=== PATIENT | female | born 1940 | race Caucasian/White ===

== ENCOUNTER 2018-02-27 23:59 | Emergency (ER) | payer MEDICARE ==
[~2018-02-27] VITALS: Ht 170.2 cm; Wt 52.5 kg
[2018-02-28 00:01] VITALS: BP 178/115; PULSE 125; RESP 16; TEMP 98.6; O2SAT 97
[2018-02-28] MEDS ORDERED: SODIUM CHLOR 0.9% 1000 ML INJ 1,000 ML IV ONE (00:04)
--- NOTE | 2018-02-28 00:08 | PD ---
HPI Chief Complaint: Left flank pain Time Seen by Provider: 00:04 Travel History International Travel<30 days: No Contact w/Intl Traveler<30days: No Traveled to known affect area: No History of Present Illness HPI Patient comes in complaining of left flank pain ongoing since about 7 PM tonight. Radiate towards her front left lower quadrant. Patient has a history of previous kidney stones. She has a urologist and follows up with them regularly and takes medications as well for her kidney stones. As the patient states she is full of kidney stones on both kidneys. Patient has been hydrating since her pain started as she believed it was related to a kidney stone. She was trying to accelerate passing it. Patient has been trying to take tramadol for pain control but IT has not been successful. [facility] Social History Tobacco Use: No Allergies-Medications (Allergen,Severity, Reaction): Coded Allergies: No Known Allergies (Unverified , 02/28/18) Review of Systems General / Constitutional: No: Fever Eyes: No: Visual changes HENT: No: Headaches Cardiovascular: No: Chest Pain or Discomfort Respiratory: No: Shortness of Breath Gastrointestinal: No: Abdominal Pain Genitourinary: Positive: Flank Pain Musculoskeletal: No: Pain Skin: No Rash Neurologic: No: Weakness Psychiatric: No: Depression Endocrine: No: Polydipsia Hematologic/Lymphatic: No: Easy Bruising Physical Exam Narrative GENERAL: Well-nourished, well-developed patient in no apparent distress. SKIN: Warm and dry. Additionally there was no evidence of any vesicular papular rash or any type of rash over that left flank area either. HEAD: Atraumatic. Normocephalic. EYES: Pupils equal and round. No scleral icterus. No injection or drainage. ENT: No nasal bleeding or discharge. Mucous membranes pink and moist. NECK: Trachea midline. No JVD. CARDIOVASCULAR: Regular rate and rhythm. no rubs or gallops RESPIRATORY: No accessory muscle use. Clear to auscultation. Breath sounds equal bilaterally. There was no reproducible chest wall tenderness to palpation on floating ribs 7 through 12th GASTROINTESTINAL: Abdomen soft, non-tender, nondistended. No rebound or guarding MUSCULOSKELETAL: Extremities without clubbing, cyanosis, or edema. No obvious deformities. NEUROLOGICAL: Awake and alert. No obvious cranial nerve deficits. Motor grossly within normal limits. Five out of 5 muscle strength in the arms and legs. Normal speech. PSYCHIATRIC: Appropriate mood and affect; insight and judgment normal. Data Data Last Documented VS Vital Signs Date Time Temp Pulse Resp B/P (MAP) Pulse Ox O2 Delivery O2 Flow Rate FiO2 02/28/18 00:01 98.6 125 16 178/115 (136) 97 Orders Orders Complete Blood Count With Diff (02/28/18 00:04) Comprehensive Metabolic Panel (02/28/18 00:04) Urinalysis - C+S If Indicated (02/28/18:04) Ct Abd/Pel W/O Iv Contrast (02/28/18 00:04) Ecg Monitoring (02/28/18:04) Iv Access Insert/Monitor (02/28/18:) Ketorolac Inj (Toradol Inj) (02/28/18 00:15) Morphine Inj (Morphine Inj) (02/28/18 00:15) Ondansetron Inj (Zofran Inj) (02/28/18 00:15) Sodium Chlor 0.9% 1000 Ml Inj (Ns 1000 M (02/28/18 00:04) Labs Laboratory Tests Test 02/28/18 00:05 02/28/18 00:15 Urine Color STRAW Urine Turbidity CLEAR Urine pH 7.5 Urine Specific [place] 1.004 Urine Protein NEG mg/dL Urine Glucose (UA) NEG mg/dL Urine Ketones NEG mg/dL Urine Occult Blood NEG Urine Nitrite NEG Urine Bilirubin NEG Urine Urobilinogen LESS THAN 2.0 MG/DL Urine Leukocyte Esterase SMALL Urine RBC LESS THAN 1 /hpf Urine WBC 7 /hpf Urine Squamous Epithelial Cells <1 /hpf Microscopic Urinalysis Comment CULT NOT INDICATED White Blood Count 9.8 TH/MM3 Red Blood Count 4.83 MIL/MM3 Hemoglobin 14.8 GM/DL Hematocrit 44.4 % Mean Corpuscular Volume 92.0 FL Mean Corpuscular Hemoglobin 30.7 PG Mean Corpuscular Hemoglobin Concent 33.3 % Red Cell Distribution Width 14.1 % Platelet Count 373 TH/MM3 Mean Platelet Volume 7.3 FL Neutrophils (%) (Auto) 60.4 % Lymphocytes (%) (Auto) 30.0 % Monocytes (%) (Auto) 6.9 % Eosinophils (%) (Auto) 2.2 % Basophils (%) (Auto) 0.5 % Neutrophils # (Auto) 5.9 TH/MM3 Lymphocytes # (Auto) 2.9 TH/MM3 Monocytes # (Auto) 0.7 TH/MM3 Eosinophils # (Auto) 0.2 TH/MM3 Basophils # (Auto) 0.0 TH/MM3 CBC Comment DIFF FINAL Differential Comment Blood Urea Nitrogen 14 MG/DL Creatinine 0.62 MG/DL Random Glucose 98 MG/DL Total Protein 7.7 GM/DL Albumin 3.9 GM/DL Calcium Level 9.2 MG/DL Alkaline Phosphatase 77 U/L Aspartate Amino Transf (AST/SGOT) 19 U/L Alanine Aminotransferase (ALT/SGPT) 27 U/L Total Bilirubin 0.3 MG/DL Sodium Level 144 MEQ/L Potassium Level 3.6 MEQ/L Chloride Level 106 MEQ/L Carbon Dioxide Level 31.2 MEQ/L Anion Gap 7 MEQ/L Estimat Glomerular Filtration Rate 93 ML/MIN [facility] Medical Decision Making Medical Screen Exam Complete: Yes Emergency Medical Condition: Yes Medical Record Reviewed: Yes Interpretation(s) Sinus tachycardia, 123 bpm, normal intervals, no evidence of tombstone ST elevation NM pattern noted Differential Diagnosis Pyelonephritis versus nephrolithiasis versus UTI versus colitis versus diverticulitis Narrative Course CBC shows no leukocytosis, no anemia, normal platelet count, no left shift UA shows no evidence of a UTI Electrolytes are all within normal limits, normal kidney liver functions. CT abdomen pelvis performed and read by radiologist shows sigmoid diverticulosis without evidence of diverticulitis, lumbar scoliosis, a 2 mm calcification is in the lumen of the urinary bladder medial to the orifice of the left ureter which represents a recently passed stone. In addition the patient has multiple bilateral renal stones no definite hydronephrosis on either side. Diagnosis Primary Impression: Ureterolithiasis Patient Instructions: General Instructions, Kidney Stones (ED) Scripts Ondansetron Odt (Zofran Odt) 4 Mg Tab 4 MG SL Q6HR Y for Nausea/Vomiting, #12 TAB 0 Refills Prov: Jeet Solorzano MD 02/28/18 Ketorolac (Ketorolac) 10 Mg Tab 10 MG PO TID Y for Pain Management, #12 TAB 0 Refills Prov: Jeet Solorzano MD 02/28/18 Disposition: 01 DISCHARGE HOME Condition: Stable Jeet Solorzano MD Feb 28, 2018 00:08
[2018-02-28] MEDS ORDERED: MORPHINE SULFATE 4 MG/ML INJ IV PUSH ONE (00:15)
[2018-02-28] MEDS ORDERED: KETOROLAC TROMETHAMINE 30 MG/ML (IVP) VIAL IV PUSH ONE ×2 (00:15→03:15)
[2018-02-28] MEDS ORDERED: ONDANSETRON HCL 4 MG/2 ML VIAL IV PUSH ONE (00:15)
[2018-02-28 00:47] LABS: AUTOMATED NEUTROPHIL # 5.9 TH/MM3 (1.8-7.7); BASOPHIL % 0.5 % (0.0-2.0); EOSINOPHIL # 0.2 TH/MM3 (0-0.4); EOSINOPHIL % 2.2 % (0.0-4.0); HEMATOCRIT 44.4 % (35.0-46.0); HEMOGLOBIN 14.8 GM/DL (11.6-15.3); LYMPHOCYTE # 2.9 TH/MM3 (1.0-4.8); MEAN CORPUSCULAR HEMOGLOBIN 30.7 PG (27.0-34.0); MEAN CORPUSCULAR HGB CONC 33.3 % (32.0-36.0); MEAN PLATELET VOLUME 7.3 FL (7.0-11.0); MONO % 6.9 % (0.0-8.0); MONOCYTE # 0.7 TH/MM3 (0-0.9); NEUT % 60.4 % (16.0-70.0); PLATELET COUNT 373 TH/MM3 (150-450); RED BLOOD COUNT 4.83 MIL/MM3 (4.00-5.30); RED CELL DISTRIBUTION WIDTH 14.1 % (11.6-17.2); WHITE BLOOD COUNT 9.8 TH/MM3 (4.0-11.0)
[2018-02-28 00:48] LABS: BILIRUBIN, URINE NEG (NEG); BLOOD, URINE NEG (NEG); GLUCOSE,URINE NEG (NEG); KETONE, URINE NEG (NEG); NITRITE,URINE NEG (NEG); PH, URINE 7.5 (5.0-8.5); SQUAMOUS EPITHELIAL CELL URINE <1 /hpf (0-5); URINE LEUKOCYTE ESTERASE SMALL (NEG)
[2018-02-28 00:49] LABS: URINE COLOR STRAW (YELLW/STRAW)
[2018-02-28 01:02] LABS: ALBUMIN 3.9 GM/DL (3.4-5.0); ALT (GPT) 27 U/L (10-53); AST (GOT) 19 U/L (15-37); BICARBONATE 31.2 MEQ/L (21.0-32.0); BLOOD UREA NITROGEN 14 MG/DL (7-18); CALCIUM 9.2 MG/DL (8.5-10.1); CHLORIDE 106 MEQ/L (98-107); CREATININE 0.62 MG/DL (0.50-1.00); GLOMERULAR FILTRATION RATE 93 ML/MIN (>89); GLUCOSE,RANDOM 98 MG/DL (74-106); SODIUM (NA) 144 MEQ/L (136-145)
[2018-02-28 01:04] LABS: ALKALINE PHOSPHATASE 77 U/L (45-117); TOTAL BILIRUBIN ADULT 0.3 MG/DL (0.2-1.0); TOTAL PROTEIN 7.7 GM/DL (6.4-8.2)
--- NOTE | 2018-02-28 01:25 | RADRPT ---
EXAM DATE/TIME: 02/28/2018 00:22 [place] COMPARISON: No previous studies available for comparison. INDICATIONS : Left flank pain. ORAL CONTRAST: No oral contrast ingested. RADIATION DOSE: 4.58 CTDIvol (mGy) MEDICAL HISTORY : None SURGICAL HISTORY : None. ENCOUNTER: Initial ACUITY: 1 day PAIN SCALE: 10/10 LOCATION: Left flank TECHNIQUE: Volumetric scanning of the abdomen and pelvis was performed. Using automated exposure control and ad justment of the mA and/or kV according to patient size, radiation dose was kept as low as reasonably achievable to obtain optimal diagnostic quality images. DICOM format image data is available electro nically for review and comparison. FINDINGS: LOWER LUNGS: The visualized lower lungs are clear. Moderate size hiatus hernia with the fundus of the stomach int rathoracic. LIVER: Homogeneous density without lesion for noncontrast technique. There is no dilation of the biliary tr ee. Cholecystectomy. SPLEEN: Normal size without lesion. PANCREAS: Within normal limits. KIDNEYS: There are bilateral calcified renal stones. On the left side, multiple stones measure up to 9 mm in size as above no evidence of hydronephrosis. The left ureter is mildly prominent, but no calcificati ons within the lumen. On the right side, there are both collecting system and parenchymal calcificat ions present with parenchymal calcifications being in the posterior cortex along the surface of the m id pole. There are also multiple small fragmented stones no which appear to be layering in a cystic cavity. The aggregate of these stones measures 2.5 x 1.0 cm. There also appears to be a dominant ca lcification measuring 1.7 x 1.2 cm in the midpole which may represent a partially staghorn calcificat ion. The right ureter is mildly prominent, but no calcifications seen within the lumen. ADRENAL GLANDS: Within normal limits. VASCULAR: There is no aortic aneurysm. BOWEL/MESENTERY: No dilated loops of small enlarged bowel. Extensive small diverticula throughout the sigmoid colon w ithout radiographic evidence of diverticulitis. No evidence of free fluid. ABDOMINAL WALL: Within normal limits. RETROPERITONEUM: There is no lymphadenopathy. BLADDER: Smooth margins. There is a faint calcification measuring 2 mm is seen on image #[id number] located just med ial to the orifice of the left ureter which may represent a recently passed stone. REPRODUCTIVE: Within normal limits. INGUINAL: There is no lymphadenopathy or hernia. MUSCULOSKELETAL: 45 left lumbar scoliosis with associated degenerative changes. CONCLUSION: 1. Multiple bilateral renal stones including small aggregates of fragmented stones and dominant large r stones. No definite hydronephrosis on either side, but both ureters are mildly prominent. No calc ifications seen in either ureter. 2. There is a 2 mm calcification in the lumen of the urinary bladder medial to the orifice of the lef t ureter which may represent a recently passed stone. 3. The fundus of the stomach is intrathoracic in location. 4. Severe left lumbar scoliosis. 5. Sigmoid diverticulosis without radiographic evidence of diverticulitis. Addy Torres MD on February 28, 2018 at 1:15 Board Certified Radiologist. This report was verified electronically.
[2018-02-28 01:30] VITALS: BP 139/91; PULSE 82; RESP 20; O2SAT 97
[2018-02-28] MEDS ORDERED: ZOFR4TAB3 SL (02:44)
[2018-02-28] MEDS ORDERED: KETO10 PO (02:44)
[2018-02-28 03:16] VITALS: BP 125/73
--- NOTE | 2018-02-28 14:26 | EKG ---
Date Performed: 02/28/2018 Time Performed: 00:14:36 PTAGE: 77 years EKG: SINUS TACHYCARDIA LOW QRS VOLTAGE IN PRECORDIAL LEADS SEPTAL MYOCARDIAL INFARCTION ABNORMAL ECG NO PREVIOUS TRACING DOCTOR: Anders Gant Interpretating Date/Time 02/28/2018 14:24:21
== END 2018-02-28 03:30 | disposition home or self-care (01) ==
LOC: NEPC 23:59
DX: N20.2 Calculus of kidney with calculus of ureter (principal); K57.30 Diverticulosis of large intestine without perforation or abscess without bleeding; R00.0 Tachycardia, unspecified
CPT/HCPCS: 74176; 80053; 81001; 85025; 93005; 96361; 96374; 96375; 96376; 99285; J1885; J2270; J2405; J7030